=== PATIENT | male | born 1965 | race Caucasian/White ===

== ENCOUNTER 2018-07-24 06:15 | Emergency (ER) | payer OTHER ==
[2018-07-24 06:21] VITALS: BP 117/66
--- NOTE | 2018-07-24 06:33 | EDPHY ---
H & P Stated Complaint: L side abd pain radiates to back, intermitent, "need to pee but cant" Time Seen by Provider: 07/24/18 06:22 HPI/ROS: Chief Complaint: Abdominal and flank pain HPI: 53-year-old male woke approximately 2 hr ago with severe left flank pain radiating to his left groin. He had the sensation ED urinate but felt like he could not. He also had some discomfort in his testicles. No history of similar episodes in the past. At worst pain was a 9/10. Pain is now gone. No fevers or chills. Some nausea but no vomiting. No diarrhea or constipation. He is in [place] visiting from [place]. ROS: 10 systems were reviewed and were negative except those elements noted in the HPI. PMH: Hyperlipidemia Social History: No smoking Family History: non-contributory Physical Exam: Gen: Awake, Alert, No Distress HEENT: Nose: no rhinorrhea Eyes: PERRLA, EOMI Mouth: Moist mucosa Neck: Supple, no JVD Chest: nontender, lungs clear to auscultation Heart: S1, S2 normal, no murmur Abd: Soft, non-tender, no guarding Back: no CVA tenderness, no midline tenderness Ext: no edema, non-tender Skin: no rash Neuro: CN II-XII intact, Sensation grossly intact, Strength 5/5 in bilateral upper and lower extremities - Personal History Current Tetanus Diphtheria and Acellular Pertussis (TDAP): No - Medical/Surgical History Hx Asthma: No Hx Chronic Respiratory Disease: No Hx Diabetes: No Hx Cardiac Disease: No Hx Renal Disease: No Hx Cirrhosis: No Hx Alcoholism: No Hx HIV/AIDS: No Hx Splenectomy or Spleen Trauma: No Other PMH: Denies - Social History Smoking Status: Never smoked Constitutional: Initial Vital Signs Temperature (C) 36.7 C 07/24/18 06:18 Heart Rate 60 07/24/18 06:18 Respiratory Rate 18 07/24/18 06:18 Blood Pressure 117/66 07/24/18 06:18 O2 Sat (%) 99 07/24/18 06:18 O2 Delivery Mode Room Air Allergies/Adverse Reactions: No Known Allergies Allergy (Unverified 07/24/18 06:20) Home Medications: Medication Instructions Recorded Hydrocodone/Acetaminophen 1 - 2 each PO Q4-6PRN PRN #10 07/24/18 [Hydrocodon-Acetaminophen 5-325] tablet Tamsulosin HCl 0.4 mg PO DAILY #10 cap 07/24/18 Medical Decision Making - Diagnostics Imaging Results: CT scan shows a 6 mm kidney stone at the left UVJ per Dr. Metz. Imaging: Discussed imaging studies w/ call center rn Radiologist ED Course/Re-evaluation: Patient's pain is resolved. He kidney stone is noted about the past. I have given him 800 mg of ibuprofen. Urinalysis shows hematuria but no infection. Will write a prescription for tamsulosin and hydrocodone as needed. He will collect the stone and follow up with primary care physician when he returns to [place]. - Data Points Laboratory Results: 07/24/18 06:50 Urine Color YELLOW Urine Appearance HAZY Urine pH 5.0 (5.0-7.5) Ur Specific [place] 1.025 (1.002-1.030) Urine Protein NEGATIVE (NEGATIVE) Urine Ketones NEGATIVE (NEGATIVE) Urine Blood 3+ H (NEGATIVE) Urine Nitrate NEGATIVE (NEGATIVE) Urine Bilirubin NEGATIVE (NEGATIVE) Urine Urobilinogen NEGATIVE EU EU (0.2-1.0) Ur Leukocyte Esterase NEGATIVE (NEGATIVE) Urine RBC Pending Urine WBC Pending Ur Epithelial Cells Pending Urine Glucose NEGATIVE (NEGATIVE) Medications Given: Discontinued Medications Ibuprofen (Motrin) 800 mg PO EDNOW ONE Stop: 07/24/18 06:55 Last Admin: 07/24/18 06:56 Dose: 800 mg Departure - Departure Disposition: Home, Routine, Self-Care Clinical Impression: Kidney stone Condition: Good Instructions: Kidney Stones (ED) Additional Instructions: Drink at least 8, 8 oz glasses of water a day. Take 600 mg of ibuprofen 3 times a day. For breakthrough pain you may take hydrocodone with acetaminophen. Take tamsulosin as prescribed to help facilitate passing of the stone. Strain your urine and collect the stone to take her primary care physician. Follow up with primary care physician in 2-3 days. Referrals: Patient,NotPresent [Unknown] - As per Instructions Prescriptions: Hydrocodone/Acetaminophen [Hydrocodon-Acetaminophen 5-325] 1 - 2 each PO Q4- 6PRN PRN #10 tablet PRN Reason: Pain, Severe Tamsulosin HCl 0.4 mg PO DAILY #10 cap
[2018-07-24] MEDS ORDERED: IBUPROFEN 800 MG TAB PO ONE (06:54)
[2018-07-24] MEDS ORDERED: TAMSULOSIN HCL 0.4 MG CAP PO ONE (07:02)
== END 2018-07-24 07:32 | disposition home or self-care (01) ==
DX: N20.0 Calculus of kidney (principal); E78.5 Hyperlipidemia, unspecified